=== PATIENT | female | born 1985 | race Caucasian/White ===

== ENCOUNTER 2018-06-21 07:23 | Inpatient (IN) | payer BC ==
[~2018-06-21] VITALS: Ht 160 cm; Wt 67.7 kg
[2018-06-21] VITALS (34 sets, daily range): BP systolic 81–120; BP diastolic 43–71; PULSE 80–122; TEMP 97.8–98.6
[~2018-06-21 07:23] MED LIST: IBU800 M1 PO; PERCOCET 325 MG1 TA2 PO; PRENATAL1 TA7
[2018-06-21] MEDS ORDERED: TUMS500 MG (08:05)
[2018-06-21] MEDS ORDERED: NATURAL IRON65 MG (08:06)
[2018-06-21 09:04] LABS: HEMOGLOBIN 11.5 g/dl (12.5-16.0); MEAN CELL VOLUME 98 fl (80.0-100.0); MEAN CORPUSCULAR HEMOGLOBIN 33 pg (27.0-31.0); MEAN CORPUSCULAR HGB CONC 34 g/dl (33.0-37.0); MEAN PLATELET VOLUME 10.1 fl (7.4-10.4); PLATELET COUNT 260 K/mm3 (130-400); RED BLOOD COUNT 3.47 M/mm3 (4.10-5.30); REDCELL DISTRIBUTION WIDTH-CV 13.9 % (11.5-14.5)
[2018-06-21 09:09] LABS: HEMATOCRIT 34.1 % (37.0-47.0)
[2018-06-21 09:41] LABS: BAND 15 % (0-10); LYMPHOCYTE 23 % (20.0-51.0); NEUTROPHILS 55 % (42.0-75.2); PLATELET ESTIMATE NORMAL (NORMAL)
[2018-06-22 00:30] VITALS: BP 108/55; PULSE 80; TEMP 97.8
[2018-06-22 07:00] VITALS: BP 114/72; PULSE 76; TEMP 98.1
[2018-06-22 16:31] VITALS: BP 110/68; PULSE 78; TEMP 98.1
[2018-06-22 19:50] VITALS: BP 110/65; PULSE 80; TEMP 98.1
[2018-06-23] MEDS ORDERED: MOTRIN 800800 MG/TAB PO (08:06)
[2018-06-23] MEDS ORDERED: PERCOCET 325 MG1 TA2 PO (08:07)
[2018-06-23 08:15] VITALS: BP 104/56; PULSE 88; TEMP 97.9
== END 2018-06-23 10:10 | disposition home or self-care (01) | DRG 775 ==
LOC: LDR 07:23 → OB 17:29
PROVIDERS: Obstetrics & Gynecology
PROC: 10E0XZZ Delivery of Products of Conception, External Approach (ICD-10-PCS; principal; 2018-06-21)
PROC: 0KQM0ZZ Repair Perineum Muscle, Open Approach (ICD-10-PCS; 2018-06-21)
PROC: 10907ZC Drainage of Amniotic Fluid, Therapeutic from Products of Conception, Via Natural or Artificial Opening (ICD-10-PCS; 2018-06-21)
PROC: 3E033VJ Introduction of Other Hormone into Peripheral Vein, Percutaneous Approach (ICD-10-PCS; 2018-06-21)
DX: O70.1 Second degree perineal laceration during delivery (principal); Z37.0 Single live birth; Z3A.39 39 weeks gestation of pregnancy
CPT/HCPCS: J2590; J2795; J7120

== ENCOUNTER → 2020-09-11 | Outpatient (CLI) | payer BC ==
[~2020-09-11] MED LIST changes: +MOTRIN 800800 MG/TAB PO; +NATURAL IRON65 MG; +TUMS500 MG
== END | disposition still patient (30) ==
LOC: ZCOL.LAB
DX: Z20.828 Contact with and (suspected) exposure to other viral communicable diseases (principal)

== ENCOUNTER 2020-09-16 06:16 | Inpatient (IN) | payer BC ==
[2020-09-16] VITALS (36 sets, daily range): BP systolic 89–117; BP diastolic 51–67; PULSE 74–105; TEMP 98–1130
[~2020-09-16] VITALS: Ht 160 cm; Wt 62.3 kg
--- NOTE | 2020-09-16 07:52 | NUR ---
PT HERE FOR INDUCTION OF LABOR. FHT'S FOUND IN THE 140'S INITIALLY. PLAN OF CARE REVIEWED WITH PT AND . IV STARTED IN LEFT HAND WITH LR INFUSING WITHOUT DIFFICULTY. PT REPORTED SHE DOES NOT DO WELL WITH IV STARTS AND SUBSEQUENTLY PASSED OUT AFTER IV WAS STARTED. WOKE UP WITHIN 45 SECONDS AND WATER/JUICE WAS GIVEN. STATES SHE FELT MUCH BETTER AFTER WAKING UP AND SHE KNEW SHE WAS GOING TO PASS OUT. ASSESSMENT COMPLETED. FHT'S REMAINED WITH MODERATE VARIABILITY THROUGHOUT THE WHOLE EPISODE.
--- NOTE | 2020-09-16 08:15 | NUR ---
PT RESTING IN BED. NO FURTHER REPORTS SHE FEELS LIKE SHE IS GOING TO PASS OUT. DRINKING JUICE AND WATER.
[2020-09-16 08:22] LABS: HEMOGLOBIN 11.6 g/dl (12.5-16.0); MEAN CELL VOLUME 99 fl (80.0-100.0); MEAN CORPUSCULAR HEMOGLOBIN 33 pg (27.0-31.0); MEAN CORPUSCULAR HGB CONC 33 g/dl (33.0-37.0); MEAN PLATELET VOLUME 10.6 fl (7.4-10.4); PLATELET COUNT 244 K/mm3 (130-400); RED BLOOD COUNT 3.53 M/mm3 (4.10-5.30); REDCELL DISTRIBUTION WIDTH-CV 14.5 % (11.5-14.5)
[2020-09-16 08:27] LABS: HEMATOCRIT 34.8 % (37.0-47.0)
--- NOTE | 2020-09-16 08:45 | NUR ---
DR HICKS IN AT 0843. SVE /2 WITH AROM AT 0845 WITH CLEAR FLUID.
[2020-09-16 08:58] LABS: BAND 12 % (0-10); LYMPHOCYTE 26 % (20.0-51.0); NEUTROPHILS 53 % (42.0-75.2)
--- NOTE | 2020-09-16 10:30 | NUR ---
MARK ROONEY CRNA, IN AT 1029 FOR EPIDURAL PLACEMENT.
--- NOTE | 2020-09-16 10:45 | NUR ---
PT SITTING UP FOR EPIDURAL. STARTED TO SWEAT DURING EPIDURAL AND FEEL LIKE SHE WAS GOING TO FAINT AGAIN BUT STARTED VOMITING INSTEAD. NO ABNORMAL SYMPTOMS WITH TEST DOSE. REPOSITIONED LYING DOWN AFTER EPIDURAL.
--- NOTE | 2020-09-16 11:30 | NUR ---
HUITRON PLACED AT 1125. SVE /-2. LARGE GUSH OF CLEAR FLUID WITH SVE.
--- NOTE | 2020-09-16 14:00 | NUR ---
FHT'S WITH ONE LATE DECEL AND THEN TWO LATE VARIABLE DECELS. SVE /+1. DR HICKS CALLED AT 1356 AND HE IS ON HIS WAY FOR DELIVERY. PT PREPPED AND POSITIONED FOR DELIVERY. HUITRON DRAINED AND REMOVED.
--- NOTE | 2020-09-16 14:07 | NUR ---
DR HICKS HERE AT 1402. PT PUSHING STARTED AT 1405 WITH OF FEMALE INFANT AT 1407. TO MOTHER'S CHEST WITH VIGOROUS CRY. PITOCIN STOPPED AFTER DELIVERY OF .
--- NOTE | 2020-09-16 14:10 | NUR ---
SPONTANEOUS DELIVERY OF PLACENTA AT [address] HICKS IN ATTENDANCE. DR AT BEDSIDE TO REPAIR 2ND DEGREE PERINEAL LACERATION. PITOCIN RESTARTED AT 333ML/HR AFTER DELIVERY OF PLACENTA.
--- NOTE | 2020-09-16 14:55 | NUR ---
PT RESTING IN BED HOLDING BABY. DENIES PAIN AT THIS TIME. FUNDUS FIRM WITH NO FREE FLOW BLEEDING OBSERVED.
--- NOTE | 2020-09-16 16:15 | NUR ---
PT AMBULATES TO BATHROOM WITH NURSE STANDBY ASSIST. LEFT LEG STILL SLIGHTLY NUMB. VOIDS WITHOUT DIFFICULTY. PERICARE PERFORMED. TUCKS GIVEN. NEW PAD, UNDERWEAR, AND GOWN GIVEN. TRANSFERS TO WHEELCHAIR TO GO TO ROOM.
[2020-09-17 03:30] VITALS: BP 118/62; PULSE 88; TEMP 98.4
[2020-09-17] MEDS ORDERED: MOTRIN 800800 MG/TAB PO (08:09)
[2020-09-17] MEDS ORDERED: PERCOCET 325 MG1 TA2 PO (08:10)
[2020-09-17 08:35] VITALS: BP 113/77; PULSE 78; TEMP 98
--- NOTE | 2020-09-17 09:54 | NUR ---
Initial visit attempt; Nurse with family, Inventory And Pricing Associate left card of congratulations for the of their daughter along with information regarding the availability of spiritual care at [facility].
[2020-09-17 13:00] VITALS: BP 114/60; PULSE 81; TEMP 98.3
[2020-09-17 17:10] VITALS: BP 108/76; PULSE 76; TEMP 98.3
[2020-09-18 07:47] VITALS: BP 101/58; PULSE 77; TEMP 97.5
--- NOTE | 2020-09-18 09:10 | NUR ---
Initial visit; Parents thanked Entry Level Automotive Technician for offering congratulations and prayer for the of their daughter. Entry Level Automotive Technician thanked family for choosing [facility].
== END 2020-09-18 08:50 | disposition home or self-care (01) | DRG 807 ==
LOC: LDR 06:16 → OB 16:30
PROVIDERS: ADMIT Obstetrics & Gynecology
PROC: 10E0XZZ Delivery of Products of Conception, External Approach (ICD-10-PCS; principal; 2020-09-16)
PROC: 0KQM0ZZ Repair Perineum Muscle, Open Approach (ICD-10-PCS; 2020-09-16)
PROC: 10907ZC Drainage of Amniotic Fluid, Therapeutic from Products of Conception, Via Natural or Artificial Opening (ICD-10-PCS; 2020-09-16)
DX: O99.02 Anemia complicating childbirth (principal); Z37.0 Single live birth; D64.9 Anemia, unspecified; O70.1 Second degree perineal laceration during delivery; Z3A.39 39 weeks gestation of pregnancy
CPT/HCPCS: J2590; J7120